=== PATIENT | female | born 1985 | race Asian ===

== ENCOUNTER 2016-10-27 13:24 | Emergency (ER) | payer OTHER ==
[2016-10-27 13:37] VITALS: BP 101/76; PULSE 78; RESP 18; TEMP 97.8
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
== END 2016-10-27 16:04 | disposition home or self-care (01) ==
LOC: EC 13:24
DX: S13.4XXA Sprain of ligaments of cervical spine, initial encounter (principal); M51.26 Other intervertebral disc displacement, lumbar region; V43.62XA Car passenger injured in collision with other type car in traffic accident, initial encounter; Y92.410 Unspecified street and highway as the place of occurrence of the external cause
CPT/HCPCS: 72125; 72131; 81025; 99284